=== PATIENT | male | born 1970 | race Caucasian/White ===

== ENCOUNTER 2018-02-25 14:07 | Emergency (ER) | payer SELFPAY ==
[~2018-02-25] VITALS: Ht 182.9 cm; Wt 81.6 kg
[2018-02-25 14:13] VITALS: BP 109/67
--- NOTE | 2018-02-25 14:44 | Emergency Room Report ---
History of Present Illness General Chief Complaint: Headache Source: Patient Present Illness HPI Patient presents with right-sided headache. It started week ago with a shocking feeling in the right side of his face that radiated up towards his anglican. He had problems with tooth at that time and required a root canal. This was done 4 days ago. He doesn't feel this is related however this been some gum inflammation after that procedure. The headache seems to get worse with stress and he feels neck pain at that time also. Sometimes neck pain radiates up into his head. He's been taking Motrin (400 mg) which helps minimally. He's felt himself have mild fever (36.8 C) but denies sore throat, cough, chest pain. Occasionally gets palpitations. There is no nausea vomiting diarrhea dysuria constipation joint pain aside from his neck. There's no change in vision. He occasionally gets palpitations. This same problem happened several years ago. The headache lasted for 3 months and went away on its own. He is helps him to meditate and relax. 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 In August his the thyroid function tests were tested and they were normal. He has an impacted wisdom tooth on the R. 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 [facility] Reviewed Nursing Documentation: PMH: Agreed; PSxH: Agreed Nursing Documentation-PM Past Medical History: No History, Except For Review of Systems All Other Systems: negative except mentioned in HPI Physical Exam Vital Signs Date Time Temp Pulse Resp B/P (MAP) Pulse Ox O2 Delivery O2 Flow Rate FiO2 02/25/18 14:13 209.3 58 16 109/67 95 Room Air 209.3 Sp02 EP Interpretation: reviewed, normal General Appearance: well appearing, no apparent distress, GCS 15 Head: normocephalic, atraumatic Eyes: bilateral eye normal inspection, bilateral eye PERRL, bilateral eye EOMI ENT: moist mucus membranes, other - upper tooth with cap, no gum inflammation Neck: supple, thyroid normal, tender lateral - more on R Respiratory: lungs clear, normal breath sounds Cardiovascular #1: regular rate, rhythm Cardiovascular #2: 2+ radial (R) Gastrointestinal: normal inspection, normal bowel sounds, non tender, no mass, non-distended Musculoskeletal: back normal, gait/station normal, normal range of motion Neurologic: alert, oriented x3, discharge rn III-XII nml as tested, motor strength/tone normal, DTRs symmetric, sensory intact, cerebellar normal, normal gait, speech normal Psychiatric: mood/affect normal Skin: normal inspection, warm/dry Medical Decision Making Diagnostic Impression: Primary Impression: Headache Qualified Codes: G44.219 - Episodic tension-type headache, not intractable ER Course Patient presents with headache. The presentation is not thunderclap however differential includes temporal arteritis, tension headache, headache related to that tooth problem, stress related headache amongst others. The patient will be evaluated with EKG and CT the head and labs. The patient will be treated with a dose of IV Toradol. CT normal. EKG no injury. Labs normal with normal ESR. Still with pressure band like across forehead. Also occasional "shocks". Ativan ordered. Improvement. Discussed treatment plan. Patient stable for outpatient observation and treatment. Laboratory Tests Test 02/25/18 14:55 White Blood Count 4.2 K/UL (4.8-10.8) L Red Blood Count 4.95 M/UL (4.70-6.10) Hemoglobin 14.6 G/DL (14.2-18.0) Hematocrit 44.2 % (42.0-52.0) Mean Corpuscular Volume 89 FL (80-99) Mean Corpuscular Hemoglobin 29.6 PG (27.0-31.0) Mean Corpuscular Hemoglobin Concent 33.1 G/DL (32.0-36.0) Red Cell Distribution Width 11.6 % (11.6-14.8) Platelet Count 183 K/UL (150-450) Mean Platelet Volume 6.9 FL (6.5-10.1) Neutrophils (%) (Auto) 62.9 % (45.0-75.0) Lymphocytes (%) (Auto) 27.1 % (20.0-45.0) Monocytes (%) (Auto) 6.9 % (1.0-10.0) Eosinophils (%) (Auto) 1.5 % (0.0-3.0) Basophils (%) (Auto) 1.6 % (0.0-2.0) Erythrocyte Sedimentation Rate 13 MM/HR (0-15) Sodium Level 143 MMOL/L (136-145) Potassium Level 4.0 MMOL/L (3.5-5.1) Chloride Level 107 MMOL/L (98-107) Carbon Dioxide Level 28 MMOL/L (21-32) Anion Gap 8 mmol/L (5-15) Blood Urea Nitrogen 11 mg/dL (7-18) Creatinine 1.2 MG/DL (0.55-1.30) Estimate Glomerular Filtration Rate > 60 mL/min (>60) Glucose Level 86 MG/DL (74-106) Calcium Level 8.7 MG/DL (8.5-10.1) Total Bilirubin 0.7 MG/DL (0.2-1.0) Aspartate Amino Transferase (AST) 15 U/L (15-37) Alanine Aminotransferase (ALT) 15 U/L (12-78) Alkaline Phosphatase 57 U/L (46-116) Total Creatine Kinase 80 U/L (26-308) Total Protein 7.0 G/DL (6.4-8.2) Albumin 4.0 G/DL (3.4-5.0) Globulin 3.0 g/dL Albumin/Globulin Ratio 1.3 (1.0-2.7) Thyroid Stimulating Hormone (TSH) 3.441 uiU/mL (0.358-3.740) EKG Diagnostic Results Rate: bradycardiac Rhythm: NSR ST Segments: no acute changes Rhythm Strip Diag. Results EP Interpretation: yes Rhythm: NSR, no PVC's, no ectopy CT/MRI/US Diagnostic Results CT/MRI/US Diagnostic Results : Imaging Test Ordered: head Impression no mass, bleed or sinusitis Last Vital Signs Date Time Temp Pulse Resp B/P (MAP) Pulse Ox O2 Delivery O2 Flow Rate FiO2 02/25/18 16:51 98.3 58 16 109/67 95 Room Air 208.9 Status: improved Disposition: HOME, SELF-CARE Condition: Improved Scripts Lorazepam* (ATIVAN*) 0.5 Mg Tablet 0.5 MG ORAL THREE TIMES A DAY, #8 TAB Prov: Timmy Parada M.D. 02/25/18 Methocarbamol* (ROBAXIN*) 500 Mg Tablet 500 MG PO TID, #10 TAB 0 Refills Prov: Timmy Parada M.D. 02/25/18 Ibuprofen* (MOTRIN*) 600 Mg Tablet 600 MG ORAL Q6H PRN for For Pain, #20 TAB Prov: Timmy Parada M.D. 02/25/18 Timmy Parada M.D. Feb 25, 2018 14:44
[2018-02-25] MEDS ORDERED: Ketorolac 30mg Inj IV ONE (14:45)
[2018-02-25 15:12] LABS: BASOPHILS % (AUTO) 1.6 % (0.0-2.0); EOSINOPHILS % (AUTO) 1.5 % (0.0-3.0); HEMATOCRIT 44.2 % (42.0-52.0); HEMOGLOBIN 14.6 G/DL (14.2-18.0); LYMPHOCYTES % (AUTO) 27.1 % (20.0-45.0); MEAN CORPUSCULAR VOLUME 89 FL (80-99); MONOCYTES % (AUTO) 6.9 % (1.0-10.0); NEUTROPHILS % (AUTO) 62.9 % (45.0-75.0); PLATELET COUNT 183 K/UL (150-450); RED BLOOD COUNT 4.95 M/UL (4.70-6.10); RED CELL DISTRIBUTION WIDTH 11.6 % (11.6-14.8); WHITE BLOOD COUNT 4.2 K/UL (4.8-10.8)
[2018-02-25 15:29] LABS: ANION GAP 8 mmol/L (5-15); BLOOD UREA NITROGEN 11 mg/dL (7-18); CALCIUM 8.7 MG/DL (8.5-10.1); CARBON DIOXIDE 28 MMOL/L (21-32); CHLORIDE 107 MMOL/L (98-107); CREATININE 1.2 MG/DL (0.55-1.30); SODIUM 143 MMOL/L (136-145)
[2018-02-25 15:42] LABS: ALANINE AMINOTRANSFERASE 15 U/L (12-78); ALBUMIN/GLOBULIN RATIO 1.3 (1.0-2.7); ALKALINE PHOSPHATASE 57 U/L (46-116); ASPARTATE AMINO TRANSFERASE 15 U/L (15-37); BILIRUBIN,TOTAL 0.7 MG/DL (0.2-1.0); CREATINE KINASE 80 U/L (26-308)
[2018-02-25] MEDS ORDERED: LORazepam 0.5mg tab ORAL ONE (16:15)
[2018-02-25] MEDS ORDERED: IBUPROFEN600 MG ORAL (16:44)
[2018-02-25] MEDS ORDERED: ROBAXIN500 MG PO (16:44)
[2018-02-25] MEDS ORDERED: ATIVAN0.5 MG ORAL (16:44)
[2018-02-25 16:51] VITALS: BP 109/67
[2018-02-25] MEDS ORDERED: TIROSINT13 MCG ORAL (16:51)
--- NOTE | 2018-02-26 08:52 | Diagnostic Imaging Report ---
Indication: Headache Technique: Continuous helical CT scanning of the head was performed without intravenous contrast material. Axial and coronal 5 mm sections were generated. Radiation dose was minimized using automated exposure control Dose: Total Dose Length Product - DLP 1358.[address] Dose Index - CTDIvol(s) 70.38 mGy. Comparison: none Findings: The ventricular system is normal in size and configuration. There is no shift of midline structures. No abnormal extra-axial fluid collections are noted. There is no evidence of intracerebral bleeding. No other abnormal high or low density areas are noted within the brain. There is minimal chronic appearing mastoid sclerosis on the left Impression: Normal CT scan of the head without contrast material. 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 The CT scanner at [facility] is accredited by the [employer] and the scans are performed using protocols designed to limit radiation exposure to as low as reasonably achievable to attain images of sufficient resolution adequate for diagnostic evaluation.
--- NOTE | 2018-02-28 19:54 | Cardiology Report ---
APPROVED REPORT EKG Measurement Heart [id number] MN [id number] [id number] Sinus bradycardia Otherwise normal ECG
== END 2018-02-25 16:53 | disposition home or self-care (01) ==
LOC: EMR 14:35
DX: G44.219 Episodic tension-type headache, not intractable (principal); R00.1 Bradycardia, unspecified
CPT/HCPCS: 36415; 70450; 80053; 82550; 84443; 85025; 85651; 93005; 96374; 99284; J1885